=== PATIENT | male | born 1990 | race African-American/Black ===

== ENCOUNTER 2021-01-03 17:21 | Emergency (ER) | payer SELFPAY ==
[2021-01-03 17:31] VITALS: BP 147/84; PULSE 87; RESP 18; TEMP 98.5
--- NOTE | 2021-01-03 18:34 | XR ---
EXAMINATION TYPE: XR wrist complete RT DATE OF EXAM: 01/03/2021 COMPARISON: NONE HISTORY: Wrist pain TECHNIQUE: 4 views FINDINGS: There is nondisplaced intra-articular longitudinal fracture through the radial styloid proc ess. The carpal bones are intact. Distal ulna is intact. IMPRESSION: Intra-articular distal radius fracture involving the radial styloid. No displacement.
--- NOTE | 2021-01-03 18:40 | ED ---
Upper Extremity HPI - General Chief Complaint: Extremity Injury, Upper Stated Complaint: rt wrist injury Time Seen by Provider: 01/03/21 17:32 Source: patient, RN notes reviewed Mode of arrival: ambulatory Limitations: no limitations - History of Present Illness Initial Comments: 30-year-old male presents emergency Department chief complaint of fall, wrist injury. Patient states he slipped. Patient complains of pain with movement. No paresthesias is right-hand dominant no head injury. Patient states that he is not wanting pain meds at this time. - Related Data Previous Rx's Medication Instructions Recorded Cyclobenzaprine [Flexeril] 10 mg PO TID PRN #15 tab 07/07/15 methylPREDNISolone [Medrol] 1 pack PO DIRECTED #1 tab.ds.pk 07/07/15 Allergies Allergy/AdvReac Type Severity Reaction Status Date / Time No Known Allergies Allergy Verified 01/03/21 17:31 Review of Systems ROS Statement: Those systems with pertinent positive or pertinent negative responses have been documented in the HPI. ROS Other: All systems not noted in ROS Statement are negative. Past Medical History Past Medical History: No Reported History History of Any Multi-Drug Resistant Organisms: None Reported Past Surgical History: No Surgical Hx Reported Past Psychological History: No Psychological Hx Reported Smoking Status: Current every day smoker Past Alcohol Use History: None Reported Past Drug Use History: None Reported General Exam Limitations: no limitations General appearance: alert, in no apparent distress Head exam: Present: atraumatic, normocephalic, normal inspection Eye exam: Present: normal appearance, PERRL, EOMI. Absent: scleral icterus, conjunctival injection, periorbital swelling ENT exam: Present: normal exam, normal oropharynx, mucous membranes moist Respiratory exam: Present: normal lung sounds bilaterally. Absent: respiratory distress, wheezes, rales, rhonchi, stridor Cardiovascular Exam: Present: regular rate, normal rhythm, normal heart sounds. Absent: systolic murmur, diastolic murmur, rubs, gallop, clicks Extremities exam: Present: other (Right wrist there is pain diffusely across raise on the distal aspect, neurovascularly intact no iris deformity) Course Vital Signs 01/03/21 17:30 Temperature 98.5 F Pulse Rate 87 Respiratory 18 Rate Blood Pressure 147/84 O2 Sat by Pulse 99 Oximetry Procedures - Orthopedic Splinting/Casting Injury #1 Side: right Upper Extremity Injury Location: short arm, wrist Upper Extremity Immobilizer: volar splint, synthetic pre-padded splint Medical Decision Making - Medical Decision Making X-rays reviewed shows intra-articular fracture, patient was splinted and will follow-up with orthopedics. Patient was offered pain meds on initial arrival patient declined. Patient discharged with starter Pack of Tylenol codeine Pain meds return parameters discussed. Disposition Clinical Impression: Closed fracture of right distal radius and ulna Disposition: HOME SELF-CARE Condition: Stable Instructions (If sedation given, give patient instructions): Arm Fracture in Adults (ED) Additional Instructions: Please return to the Emergency Department if symptoms worsen or any other concerns. Is patient prescribed a controlled substance at d/c from ED?: No Referrals: None,Stated [Primary Care Provider] - 1-2 days William Rosas MD [STAFF PHYSICIAN] - 1-2 days Time of Disposition: 18:40
[2021-01-03] MEDS ORDERED: ACET/COD 300 MG/30 MG STARTER PACK 6 TAB BTL PO STA (18:41)
== END 2021-01-03 18:56 | disposition home or self-care (01) ==
LOC: EC 17:21
DX: S52.571A Other intraarticular fracture of lower end of right radius, initial encounter for closed fracture (principal); S52.514A Nondisplaced fracture of right radial styloid process, initial encounter for closed fracture; F17.200 Nicotine dependence, unspecified, uncomplicated; W01.0XXA Fall on same level from slipping, tripping and stumbling without subsequent striking against object, initial encounter
CPT/HCPCS: 29125; 99283